=== PATIENT | female | born 1950 | race Caucasian/White ===

== ENCOUNTER 2017-04-25 09:03 | Inpatient (IN) | payer MEDICARE, BC ==
[~2017-04-25 09:03] MED LIST: Bupivacaine 0.5%/EPINEPHrine 1:200,000 50 ML MDV ONE; Meropenem 500 MG SDV ONE
[2017-04-25] MEDS ORDERED: ceFAZolin 2 GM in Sodium Chloride 0.9% 50 ML IV ONE (09:30)
[2017-04-25] MEDS ORDERED: Albuterol/Ipratropium 3.0-0.5 MG/3 ML Neb Soln NEB ONE (09:30)
[2017-04-25] MEDS ORDERED: Neostigmine Methylsulfate 1 MG/ML 5 ML Syringe ONE (09:32)
[2017-04-25] MEDS ORDERED: Dexamethasone 4 MG/ML SDV ONE (09:32)
[2017-04-25] MEDS ORDERED: Propofol 200 MG/20 ML SDV ONE (09:32)
[2017-04-25] MEDS ORDERED: Rocuronium 50 MG/5 ML Vial ONE (09:32)
[2017-04-25] MEDS ORDERED: Succinylcholine 200 MG/10 ML MDV ONE (09:32)
[2017-04-25] MEDS ORDERED: Glycopyrrolate 0.2 MG/ML 5 ML MDV ONE (09:32)
[2017-04-25] MEDS ORDERED: Ondansetron 4 MG/2 ML SDV ONE (09:32)
[2017-04-25] MEDS ORDERED: Oxymetazoline 0.05% Nasal Spray 15 ML Bottle ONE (13:30)
[2017-04-25] MEDS ORDERED: Naloxone 0.4 MG/ML SDV ONE (13:31)
[2017-04-25] MEDS ORDERED: fentaNYL 100 MCG/2 ML SDV IVPUSH ONE (14:05)
[2017-04-25] MEDS: Ondansetron 4 MG/2 ML SDV IVPUSH ONE ×2 (14:15→15:48)
[2017-04-25] MEDS ORDERED: Dextrose 5%-Lactated Ringers 1,000 ML IV SCH (15:30)
[2017-04-25] MEDS ORDERED: Ondansetron 4 MG/2 ML SDV IV PRN (15:32)
[2017-04-25] MEDS ORDERED: Cyclobenzaprine 10 MG Tab PO PRN (15:33)
[2017-04-25] MEDS: Acetaminophen/oxyCODONE 325-10 MG Tab PO PRN ×2 (15:46→21:58)
[2017-04-25] MEDS ORDERED: Levalbuterol Tartrate HFA 15 GM Inhaler INH PRN (15:48)
[2017-04-25] MEDS ORDERED: hydrOXYzine HCl 100 MG/2 ML SDV IM ONE (17:00)
[2017-04-25] MEDS ORDERED: Meperidine PF 75 MG/ML Syringe IM ONE (17:00)
[2017-04-25] MEDS: Pramipexole 0.5 MG Tab PO SCH (20:31)
[2017-04-26] MEDS: Albuterol/Ipratropium 3.0-0.5 MG/3 ML Neb Soln INH PRN ×2 (03:26→20:05)
[2017-04-26] MEDS ORDERED: Furosemide 40 MG/4 ML VIAL IVPUSH STA (03:35)
[2017-04-26] MEDS ORDERED: Metoclopramide 10 MG/2 ML SDV IVPUSH SCH (07:00)
[2017-04-26] MEDS: Metoclopramide 10 MG/2 ML SDV IVPUSH SCH ×3 (07:01→19:49)
[2017-04-26] MEDS: Acetaminophen/oxyCODONE 325-10 MG Tab PO PRN (10:31)
[2017-04-26] MEDS: Piperacillin/Tazobactam/Dext 3.375 GM in Premix Bag 1 BAG IV SCH ×3 (12:34→22:01)
[2017-04-26] MEDS: Dextrose 5%-Lactated Ringers 1,000 ML IV SCH (12:35)
[2017-04-26] MEDS: BREO ELLIPTA INH SCH (12:48)
[2017-04-26] MEDS: BUDESONIDE 3 MG PO SCH (12:49)
[2017-04-26] MEDS: Levofloxacin/Dextrose 5%-Water 500 MG in Premix Bag 1 BAG IV SCH (13:26)
[2017-04-26] MEDS: Pramipexole 0.5 MG Tab PO SCH (20:08)
[2017-04-27] MEDS: Acetaminophen/oxyCODONE 325-10 MG Tab PO PRN (02:27)
[2017-04-27] MEDS: Metoclopramide 10 MG/2 ML SDV IVPUSH SCH ×4 (02:29→20:10)
[2017-04-27] MEDS: Piperacillin/Tazobactam/Dext 3.375 GM in Premix Bag 1 BAG IV SCH ×4 (05:01→22:04)
[2017-04-27] MEDS: BREO ELLIPTA INH SCH (07:29)
[2017-04-27] MEDS: Dextrose 5%-Lactated Ringers 1,000 ML IV SCH ×2 (10:10→22:05)
[2017-04-27] MEDS: BUDESONIDE 3 MG PO SCH (10:11)
[2017-04-27] MEDS: Levofloxacin/Dextrose 5%-Water 500 MG in Premix Bag 1 BAG IV SCH (11:53)
[2017-04-27] MEDS ORDERED: Magnesium Sulfate/Water 2 GM in Premix Bag 1 BAG IV SCH (14:00)
--- NOTE | 2017-04-27 17:00 | PN ---
DATE OF SERVICE: 04/26/2017 The patient overnight had a bit in the way of emesis and some of this had some old blood products from her bloody nose that she had in the recovery room. This appears to be not related to nausea so much, but when she is coughing, she may have had some aspiration with underlying COPD. I think we will empirically start her on Zosyn and Levaquin. After obtaining a sputum culture, we will check a chest x-ray tomorrow morning. Otherwise, I the regimen and restart diet later in the day assuming the nausea is clearing. We will have RT see the patient also to assist in pulmonary toilet. Bebeto Corona MD /[id number]
[2017-04-27] MEDS: Acetaminophen 325 MG Tab PO PRN (17:55)
[2017-04-27] MEDS: Albuterol/Ipratropium 3.0-0.5 MG/3 ML Neb Soln INH PRN (18:06)
[2017-04-27] MEDS: Pramipexole 0.5 MG Tab PO SCH (20:11)
[2017-04-28] MEDS: Metoclopramide 10 MG/2 ML SDV IVPUSH SCH ×3 (02:22→15:02)
[2017-04-28] MEDS: Piperacillin/Tazobactam/Dext 3.375 GM in Premix Bag 1 BAG IV SCH ×3 (04:24→16:20)
[2017-04-28] MEDS: Dextrose 5%-Lactated Ringers 1,000 ML IV SCH (08:27)
[2017-04-28] MEDS: BREO ELLIPTA INH SCH (08:32)
[2017-04-28] MEDS: BUDESONIDE 3 MG PO SCH (08:38)
--- NOTE | 2017-04-28 09:15 | PN ---
DATE OF SERVICE: 04/28/2017 SUBJECTIVE: Farrah is postop day #3. She is having difficulty keeping her O2 saturations up without oxygen. She has been afebrile, pain is controlled, ambulating in the guerra, and has no other questions or concerns. OBJECTIVE: GENERAL: Farrha Costa is a 66-year-old female. She is alert and orientated. VITAL SIGNS: TPR is 98.5, 109, 20, and blood pressure is 174/89. O2 sats 95% on 3 L of O2. HEENT: Negative. NECK: Supple. HEART: Regular rate and rhythm. LUNGS: Clear. ABDOMEN: Dressings dry and intact. Abdominal binder is on. EXTREMITIES: Without peripheral edema. ASSESSMENT: Laparoscopic repair of incarcerated ventral hernia with mesh. Date of surgery was 04/25/2017. PLAN: 1. To be evaluated for home O2. 2. Dr. Eddy Beauchamp to follow up in regard to chronic anemia. 3. Dressing off. 4. May shower. 5. Good pulmonary toilet encouraged. 6. We will evaluate p.r.n. or in a.m. and plan discharge in a.m. Emerald Henry PA-C /[id number]
--- NOTE | 2017-04-28 09:16 | CR ---
Heart size within normal limits. Nodular density left midlung zone. Would recommend a noncontrast [facility] CT follow-up. There is a patchy opacity within the left lung base which could indicate aspiration or infection.
[2017-04-28] MEDS ORDERED: Sodium Chloride 0.65% Nasal Spray 45 ML Bottle NAS PRN (11:10)
[2017-04-28] MEDS: Levofloxacin/Dextrose 5%-Water 500 MG in Premix Bag 1 BAG IV SCH (11:21)
--- NOTE | 2017-04-28 11:34 | PN ---
DATE OF SERVICE: 04/27/2017 The patient has now been afebrile with stable vital signs. Respiratory status appears to be quite a bit better today. We will continue to work with pulmonary toilet. Her nausea has largely cleared, and we will encourage frequent small amounts of oral intake and also offer some Ensure Boost today. In all likelihood, she should be ready for discharge home tomorrow. Bebeto Corona MD /[id number]
--- NOTE | 2017-04-28 13:19 | OR ---
DATE OF PROCEDURE: 04/25/2017 PREOPERATIVE DIAGNOSIS: Incarcerated ventral hernia. POSTOPERATIVE DIAGNOSES: 1. Incarcerated ventral hernia. 2. Separate non-incarcerated incisional hernia. OPERATIVE PROCEDURES: Diagnostic laparoscopy with: 1. Repair of incarcerated ventral hernia with mesh (47281). 2. Repair of non-incarcerated incisional hernia with mesh (71022). ANESTHESIA: General. OLERICULTURE TEACHER: Emerald Henry PA-C. INDICATION FOR PROCEDURE: This is a 66-year-old female presenting with increasingly symptomatic epigastric ventral hernia. This is located in the midepigastrium and has had a significant bulge, which is not reducible. Plan is to proceed with a diagnostic laparoscopy, laparotomy if necessary, and repair of the hernia with a mesh technique. Potential risks including bleeding, infection, injury to the underlying viscera, problems with the hernia recurring or the mesh becoming infected; as well as the remote possibility of cardiopulmonary, septic, or hemorrhagic complications leading to were discussed, and the patient wishes to proceed. DETAILS OF PROCEDURE: The patient was taken to the operating room and after general endotracheal anesthesia was induced, a Turcios catheter was inserted and the abdomen prepped and draped. In the left lateral midabdomen, a transverse incision was made and the peritoneal cavity entered under direct vision with an Optiview trocar and inflated to 15 mmHg pressure of CO2. Laparoscope was reinserted. No underlying trocar insertion site injuries were seen. Following this, 5-mm trocars were placed in the left upper quadrant and left lower quadrant, and general exploration was undertaken. The patient was noted to have the incarcerated ventral hernia in midepigastrium. This contained what appeared to be preperitoneal fat predominantly, and her bowel was caught. The patient also had a separate small incisional hernia in the periumbilical area related to previous laparoscopic incision. The peritoneum over the area of the ventral hernia was then incised. This allowed eventual reduction of the preperitoneal fat, which was incarcerated within it. Once all of this was cleared, there appeared to be no further contents within the hernia. A Ventralight ST hernia mesh with the balloon positioning system was then selected. A 15 cm southern ute was selected, and this created overlap of both of the hernias. The primary ventral hernia was placed at the center of the mesh, and the mesh then overlapped on the umbilical site for several centimeters as well, once it was positioned. After the mesh was soaked in antibiotic-containing saline solution, it was placed in the intraperitoneal location and then unfolded. A small stab wound over the center of the ventral hernia was made, and the balloon inflation catheter was pulled up through via that incision, and the balloon inflated, thus bringing the mesh up against the abdominal wall. This was fixed with 2 circumferential absorbable tacking screws. Upon completion of the placement of the tacking screws, the balloon was deflated and withdrawn. Good fixation of the mesh and good coverage away from the areas of the herniation were confirmed. At that point, no further problems were noted. Trocars were removed intact. The 12-mm camera port was closed with 0 Vicryl stitch, and the skin at each incision with 4-0 Vicryl skin stitch. Dressing was applied. The patient was taken to the recovery room in satisfactory condition. There were no evident complications. Physician medical assistant supervisor, Emerald Henry, played an essential role in assisting in this case, helping to position the patient, retract structures as needed, as well as suturing and cutting sutures when indicated. Her presence improved patient safety and decreased the operative time. Bebeto Corona MD /[id number]
[2017-04-28] MEDS ORDERED: Ondansetron 4 MG Tab.DIS PO PRN (17:39)
[2017-04-28] MEDS: Metoclopramide 10 MG Tab PO SCH (19:30)
[2017-04-28] MEDS: Acetaminophen 325 MG Tab PO PRN (19:31)
[2017-04-28] MEDS ORDERED: Benzocaine/Cetylpyridinium/Menthol Lozenge MUCMEM PRN (19:35)
[2017-04-28] MEDS: Pramipexole 0.5 MG Tab PO SCH (20:09)
[2017-04-28] MEDS ORDERED: Furosemide 20 MG Tab PO STA (20:13)
[2017-04-28] MEDS: Lisinopril 10 MG Tab PO SCH (20:32)
[2017-04-29] MEDS: Metoclopramide 10 MG Tab PO SCH ×2 (01:53→08:19)
[2017-04-29] MEDS: Acetaminophen 325 MG Tab PO PRN ×2 (01:59→07:27)
[2017-04-29] MEDS: BREO ELLIPTA INH SCH (07:20)
[2017-04-29 08:13] VITALS: BP 169/85
[2017-04-29] MEDS: BUDESONIDE 3 MG PO SCH (08:17)
[2017-04-29] MEDS: Lisinopril 10 MG Tab PO SCH (08:19)
[2017-04-29] MEDS ORDERED: Levofloxacin 500 MG Tab PO SCH (10:00)
--- NOTE | 2017-04-30 11:21 | DISCH ---
ADMISSION DIAGNOSES: 1. Recurrent incisional hernia. 2. Crohn's disease. 3. Essential hypertension. 4. Chronic obstructive pulmonary disease. DISCHARGE DIAGNOSES: 1. Diagnostic laparoscopy with: a. Repair of incarcerated ventral hernia with mesh. b. Repair of non-incarcerated incisional hernia with mesh for incarcerated ventral hernia and separate non-incarcerated incisional hernia. Date of surgery is 04/25/2017. Bebeto Corona MD, surgeon. 2. Chronic obstructive pulmonary disease. 3. Hypoxia, requiring in home oxygen. 4. Anemia, hemoglobin of 8.4 and hematocrit 27.7. 5. Crohn's disease. HISTORY: Farrah is a 66-year-old female presenting with increasingly symptomatic epigastric ventral hernia. After preoperative evaluation and discussion of possible risks and possible complications, she wished to proceed with surgical procedure. HOSPITAL COURSE: Farrah had her surgery on 04/25/2017. She had no operative complications. On postop day one, she did have emesis during the night and she did have a bloody nose in the recovery room and the emesis did contain some old blood. She was treated prophylactically with Zosyn and Levaquin for possibility of aspiration, and she does have a history of COPD. She was started on a diet later that day. On 04/27/2017, on postop day 2, she was encouraged to increase oral intake. Her activity was good. Her oximetry without oxygen would go into the 84%. On 04/28/2017, she was evaluated for home O2. She did qualify, and on postop day 4, she was able to be discharged to home with home O2. PHYSICAL EXAMINATION: GENERAL: Farrah Costa is a pleasant 66-year-old female. VITAL SIGNS: Height is 5 feet 2.6 inches, weight is 143 pounds, TPR is 98.1, 103, 20, blood pressure 169/85. HEENT: Negative. NECK: Supple. HEART: Regular rate and rhythm. LUNGS: Clear. ABDOMEN: Incisions look good. Abdominal binder has been on. There is a pressure dressing over previous hernia site. EXTREMITIES: Without peripheral edema. DISPOSITION: Discharged to home. CONDITION: Stable and improving. FOLLOWUP APPOINTMENT: With eBbeto Corona MD at [facility] on 05/07/2017 at 9:00 a.m. She is to have a CBC, CMP, ferritin at 8:30 a.m. before clinic appointment. DISCHARGE MEDICATIONS: New prescriptions: 1. Tylenol 650 mg q.4 hours p.r.n. lesser pain. 2. Percocet 10/325 mg 1 to 2 q.4 hours p.r.n. pain, #40. 3. Zofran 4 mg ODT q.4 hours p.r.n. nausea #30. Home medications: 1. Entocort 6 mg oral daily. 2. Vitamin D3 2000 international units daily. 3. Vitamin B12 1000 mcg take as directed. 4. EpiPen take as directed. 5. Xopenex one puff inhalation every 6 hours p.r.n. wheezing. 6. Discontinue tramadol while taking the Percocet. DISCHARGE DIET: Usual diet as tolerated. Drink 8 to 10 glasses of water a day. DISCHARGE ACTIVITY: After discharge, no lifting greater than 10 pounds for 6 weeks. Other activity, walk at least 6 times inside your home. Driving, do not drive on pain medication. Shower/bathing, may shower. Notify provider of fever, increased pain, swelling, redness, nausea or vomiting. Wound incision care, keep site clean and dry. Wear abdominal binder for 6 weeks. Pressure dressing, may roll up washcloth over hernia site. SPECIAL INSTRUCTIONS: Use incentive spirometer 10 times every hour while awake for 1 week. Use oxygen as directed by Respiratory Therapy. If hemoglobin remains to be low, she will need to have a complete workup in regard to anemia.
== END 2017-04-29 11:14 | disposition home or self-care (01) | DRG 354 ==
LOC: JP.SDS 09:03 → JP.2SS 15:00 → JP.SDS 04-26 09:10 → JP.2SS 04-26 09:10
PROVIDERS: ADMIT Surgery; ATTEND Surgery
PROC: 0WUF4JZ Supplement Abdominal Wall with Synthetic Substitute, Percutaneous Endoscopic Approach (ICD-10-PCS; principal; 2017-04-25)
DX: K43.6 Other and unspecified ventral hernia with obstruction, without gangrene (principal); K50.90 Crohn's disease, unspecified, without complications; R06.02 Shortness of breath; K43.9 Ventral hernia without obstruction or gangrene; K43.2 Incisional hernia without obstruction or gangrene; J44.9 Chronic obstructive pulmonary disease, unspecified; I10 Essential (primary) hypertension; R09.02 Hypoxemia; Z99.81 Dependence on supplemental oxygen; D64.9 Anemia, unspecified
CPT/HCPCS: 36415; 49653; 49654; 80053; 83735; 84100; 85027; 94762; A9270 ×3; C1781; J0330; J0690; J1100; J1940; J2175; J2185; J2310; J2405; J2704; J2710; J2765 ×2; J3010 ×2; J3410; J7050; J7620 ×2; 71020; 71020-26; 83880; 87070; 87077; 87205; 88302; 94640-76; J1956; J2543; J3475; J7042; J7500